=== PATIENT | female | born 1995 | race Two or more races ===

== ENCOUNTER 2019-03-14 12:58 | Emergency (ER) | payer OTHER ==
[~2019-03-14] VITALS: Ht 157.5 cm; Wt 51.3 kg
[2019-03-14 14:51] VITALS: BP 128/84
[2019-03-14] MEDS ORDERED: LORazepam 0.5 MG TAB PO ONE (15:15)
== END 2019-03-14 16:25 | disposition home or self-care (01) ==
LOC: ER 12:58
DX: J02.9 Acute pharyngitis, unspecified (principal); F41.9 Anxiety disorder, unspecified; J45.909 Unspecified asthma, uncomplicated; F12.90 Cannabis use, unspecified, uncomplicated

== ENCOUNTER 2019-05-03 13:03 | Emergency (ER) | payer OTHER ==
[~2019-05-03] VITALS: Ht 157.5 cm; Wt 51.3 kg
[2019-05-03 16:30] VITALS: BP 115/73
== END 2019-05-03 18:22 | disposition home or self-care (01) ==
LOC: ER 13:03
DX: M54.5 Low back pain (principal); F12.10 Cannabis abuse, uncomplicated
CPT/HCPCS: 72100